=== PATIENT | female | born 1990 ===

== ENCOUNTER 2016-12-27 05:17 | Inpatient (IN) | payer MEDICAID, SELFPAY ==
[2016-12-27 05:51] VITALS: BMI 27.9
[2016-12-27] MEDS ORDERED: Lactated Ringer's 1,000 ML IV SCH ×2 (05:59→06:00)
--- NOTE | 2016-12-27 06:26 | OBADHP ---
Datetime: 12/27/2016 06:02 Admit Comment, IP Provider: CC: "vaginal bleeding and contractions" HPI: Patient is a 26 YO @ 39.6 wks presents to [facility] for vaginal bleeding and contractions. Pe r patient conytractions started around 11:30 PM last night and are closer apart now, approximately 2- 3 mins apart now. Additionally patient started having spotting per vagina. LOF is negative, and repor ts good movement. PAST OB HX: 2012 NVDF PAST MEDICAL HISTORY: n/a PAST SURGICAL HISTORY: n/a PAST SOCIAL HISTORY: denies Smoking/Alcohol/Drugs, no hx of STIs ALLERGIES: NKDA PHYSICAL EXAM Vital signs stable General: distress, active labor HEART: s1s2 no M/G/R Lungs: clear to ascultation bilaterally ABDOMEN: gravid, NT. Cervix: 7 and bulging membrane. MONITOR: FHR 140, catagory I ASSESSMENT/PLAN: 26 YO , Intrauterine at 39.6 weeks, GBS negative. Pt is currently i n active phase of labor. -Admit to Labor and Delivery, CBC/Type and Screen, Intravenous access, Monitoring, monitor L abor progress, Discussion about her condition including labor, delivery, and pain management with epi dural. Chasity Dunne, PGY I OB Hospitalist Addendum: Pt seen and examined by me. Agree w/ above. 26 yo at 39+6 wks w/ c/o painful ctxns that started around 11:30pm, spotting that started at MN, in active labor. Pt a dmitted to L_D. VE 7 cm w/ BBOW. FHT reassuring. GBS negative. (ES) Pelvic Type - PN: Adequate Extremities - PN: Normal Abdomen - PN: Normal Back - PN: Not Done Breast - PN: Not Done Lungs - PN: Normal Heart - PN: Normal Thyroid - PN: Not Done Neurologic - PN: Normal HEENT - PN: Normal General - PN: Normal FHR - Baseline A Provider: 140 Gestation - Est Wks by US: 39.6 IP Hx Assessment: The History has been Reviewed and is Current Vital Signs Provider: Reviewed IP Chief Complaint: Uterine contractions; Vaginal bleeding NICHD Variability Prov Fetus A: Moderate 6-25bpm NICHD Accel Fetus A IP Provider: [id number] FHR Category Provider Fetus A: Category I Genitourinary Exam: Normal DTRs - PN: Not Done EGA AdmitDate IP: 92.0 IP Adm Impression: Term, intrauterine IP Admit Plan: Admit to unit; Initiate labor protocol
[2016-12-27 07:08] LABS: BASO % 0.2 % (0.0-2.0); EOS % 0.2 % (0.0-4.0); HEMOGLOBIN 12.2 g/dL (12.0-16.0); LYMPH % 15.2 % (20.0-40.0); MEAN CELL VOLUME 89.8 fl (81.0-99.0); MEAN CORPUSCULAR HEMOGLOBIN 29.7 pg (27.0-31.0); MEAN PLATELET VOLUME 10.9 fl (7.2-11.7); MONO # 0.7 K/uL (0.0-0.8); MONO % 5.1 % (0.0-10.0); NEUT # 10.4 K/uL (1.8-7.0); NEUT % 79.3 % (50.0-75.0); RBC 4.1 Mil/uL (3.80-5.20); RED CELL DISTRIBUTION WIDTH 17.7 % (11.5-14.5); WHITE BLOOD COUNT 13.1 K/uL (4.8-10.8)
[2016-12-27] MEDS ORDERED: Lidocaine 1% Inj (20ml) ONE (07:12)
[2016-12-27] MEDS ORDERED: Oxytocin 30 units/LR 500ML 30 U/500 ML BAG IV ONE (07:19)
[2016-12-27] MEDS ORDERED: Oxytocin 30 units/LR 500ML 30 U/500 ML BAG IV SCH (07:32)
[2016-12-27] MEDS ORDERED: Benzocaine/Menthol SPRAY TOP PRN ×2 (07:32→11:03)
[2016-12-27] MEDS ORDERED: Oxycodone/Acetaminophen 5/325 mg Tab PO PRN ×2 (07:32→11:03)
--- NOTE | 2016-12-27 07:44 | OBDS ---
MATERNAL INFORMATION Provider Comments: Pt progressed to complete and pushed to deliver a viable female infant through cl ear fluid at 07:15am. Apgars 9 and 9. Wt 7#7, 3355 gms. Baby placed on mother's abdomen. Cord clam ped and cut. Cord blood collected. Placenta delivered spontaneously intact w/ 3vc at 07:20am. 1% l idocaine injected into small vaginal tear. Small 1st degree repaired w/ 2-0 rapide. Pt and baby rekha erated procedure well. EBL 100 mL LABOR SUMMARY EDC: 12/28/2016 00:00 No. Babies in Womb: 1 LABOR INFORMATION Onset of Labor: 12/26/2016 23:30 Group B Beta Strep: Negative (Annotations: Data stored by [facility] on behalf of user) VAGINAL DELIVERY Laceration Repair Note: 1% lidocaine injected into small vaginal tear. Small 1st degree repaired w/ 2-0 rapide.
[2016-12-28 07:25] LABS: BASO # 0.1 K/uL (0.0-0.2); BASO % 0.6 % (0.0-2.0); EOS # 0.1 K/uL (0.0-0.7); EOS % 1.2 % (0.0-4.0); HEMOGLOBIN 11.4 g/dL (12.0-16.0); LYMPH # 2.7 K/uL (1.0-4.3); LYMPH % 22.6 % (20.0-40.0); MEAN CELL VOLUME 90.5 fl (81.0-99.0); MEAN CORPUSCULAR HEMOGLOBIN 29.7 pg (27.0-31.0); MEAN CORPUSCULAR HGB CONC 32.8 g/dL (33.0-37.0); MEAN PLATELET VOLUME 10.7 fl (7.2-11.7); MONO # 0.8 K/uL (0.0-0.8); MONO % 6.3 % (0.0-10.0); NEUT # 8.4 K/uL (1.8-7.0); NEUT % 69.3 % (50.0-75.0); RBC 3.84 Mil/uL (3.80-5.20); WHITE BLOOD COUNT 12.1 K/uL (4.8-10.8)
--- NOTE | 2016-12-29 10:59 | OBPPN ---
Datetime: 12/29/2016 07:18 PP Pain Prov: Within normal limits PP Nausea Prov: Denies PP Flatus Prov: Yes PP BM Prov: No PP Heart Prov: Normal PP Lungs Prov: Normal PP Abdomen/Uterus Prov: Normal PP Lochia Prov: Normal PP Extremities Prov: Normal PP C/S Incision Prov: Not Applicable PP Progress Prov: Normal PP Impression Prov: Normal progression PP Plan Prov: Discharge PP Progress Note Prov: [employer] # [id number] This is a 26 YO who had a NVD on 12/27/16 in AM. Seen and examined at bedside. No changes overn ight. pt c/o no pain, well controlled. Pt is breast feeding baby. Tolerating regular diet, breastfeed ing only w/o difficulty. Lochia is similar to menses volume. Passing gas, denies BM so far. Voiding freely with no blood noted. Denies n/v, fever, chills, chest pain, dyspnea, dizziness. no cp/sob or d izziness PE: VS stable Gen: patient is fatigue, NAD CV: S1S2 no murmurs PUL: clear breath sounds b/l, no wheezing Abdomen: hypoaBS, - tenderness Ext: no pedal edema, NT A/P This is a 26 y/o who had a NVD on 12/27/16 in AM. Patient remains afebrile, no pain, tolerating regular diet, doing well. Motrin and Percocet for pain patient is encouraged to breastfeed and ambulate care will continue and d/c home in afternoon - Prashant Schmidt, PGY-1@ 718am Addendum by Dr. Lawler - Patient evaluated independently and I agree with the above. The patient is stable for discharge, discharge patient home, discharge instructions reviewed IP PP Procedures: None Vital Signs Provider PP: Reviewed; Within Normal Limits Datetime: 12/28/2016 07:02 PP Breasts Prov: Normal PP Vulva/Perineum Prov: Normal PP CVA Tenderness Prov: Normal PP Comments Phys Exam Prov: abd: fundus firm, level just above umbilicus. Soft, NT/ND, no guarding, no rigidity. +BS ext: homans neg b/l, no edema/erythema
--- NOTE | 2016-12-29 11:04 | OBDCSUM ---
Datetime: 12/29/2016 11:02 Discharged to, Provider: Home Follow up at, Provider: [facility] Disch Instr Activity: Normal activity Disch Instr Diet: Regular Discharge Instructions, Provider: Routine instructions given Discharge Diagnosis, Provider: Term Delivered Discharge Time: 12/29/2016 11:02 Follow up in weeks, Provider: 6 wks Disch Referrals: None Contraception discussed, Prov: Yes
[2016-12-29 18:47] VITALS: BP 104/52; PULSE 71; RESP 20; TEMP 98.1
== END 2016-12-29 14:45 | disposition home or self-care (01) | DRG 373 ==
LOC: H.EROB2 05:17 → H.EROB 05:34 → H.L&D 05:59 → H.EROB2 06:02 → H.OB/GYN 09:54
PROVIDERS: ADMIT Obstetrics & Gynecology; ATTEND Obstetrics & Gynecology
PROC: 10E0XZZ Delivery of Products of Conception, External Approach (ICD-10-PCS; principal; 2016-12-27)
PROC: 0HQ9XZZ Repair Perineum Skin, External Approach (ICD-10-PCS; 2016-12-27)
PROC: 4A1HXCZ Monitoring of Products of Conception, Cardiac Rate, External Approach (ICD-10-PCS; 2016-12-27)
DX: O70.0 First degree perineal laceration during delivery (principal); Z37.0 Single live birth; Z3A.39 39 weeks gestation of pregnancy